=== PATIENT | male | born 1965 | race Caucasian/White ===

== ENCOUNTER 2017-07-19 08:57 | Day surgery (SDC) | payer OTHER ==
[2017-07-18 12:35] VITALS: BMI 25.9
--- NOTE | 2017-07-18 19:45 | PREOPHP ---
DATE OF ADMISSION: 07/19/2017 HISTORY OF PRESENT ILLNESS: This 52-year-old patient is going to be admitted for diagnostic arthroscopy, partial medial and lateral meniscectomy, possible plica band release and synovectomy, application of Diaz dressing. This 52-year-old patient has been experiencing knee pain for quite a while. Conservative treatment resulted in limited benefit to the patient, and the patient has requested surgical intervention. PAST MEDICAL HISTORY: Reflux disease. SOCIAL HISTORY: Nonsmoker, nondrinker. FAMILY HISTORY: Negative. ALLERGIES: NONE. MEDICATIONS: Have been: 1. Diclofenac. 2. Folic acid and D3. 3. For postop, he was given Bactrim-DS and ibuprofen. OTHER MEDICATIONS: The patient has been on, (Cadista) methylprednisolone. REVIEW OF SYSTEMS: Limited to present illness. PHYSICAL EXAMINATION: SKIN: Within normal limits. EENT: PERRLA. HEAD AND NECK: Normocephalic. Trachea midline. Bilateral symmetrical carotid pulses. No mass, no bruit, no lymphadenopathy. CARDIOVASCULAR: Normal sinus rhythm. S1, S2 normal. No murmur. No JVD. No peripheral edema. LUNGS: Clear. ABDOMEN: Slightly protuberant. No organomegaly. No mass. Bowel sounds present. GENITOURINARY AND RECTAL: Not done. Not pertinent to this admission. MUSCULOSKELETAL: Height 5 feet 10, weighing 180 pounds. Cervical spine shows normal range of motion. Spine has minimal tenderness. Shoulders, elbows, wrists and hands were normal, including normal neurological examination. Lumbar spine: This shows range of motion is 75% with tenderness over the L4, L5 and S1 facet joints. Hips show normal range of motion. Right knee shows range of motion from 0 to 120 degrees with tenderness over the medial as well as the lateral tibiofemoral joint line. Positive Joey test. Positive patellofemoral test. Mild synovitis present. IMAGING: MRI has indicated complex tear of the medial meniscus, lateral meniscus, chondral loss, effusion and synovitis. TREATMENT PLAN: Alternatives, risks and benefits discussed. The patient understands the possibility of complications from surgery such as infection, bleeding, nerve damage, vascular damage, possibility of deep venous thrombosis, pulmonary embolism, hypersensitivity and occasionally even . [place] result may not be obtained depending on actual findings and known or unknown factor or factors. Formal H and P is supposed to have been done by PCP. Dictated By: ESME MOLINA/GIDEON Conf#: [id number] DID#: [id number] JACKIE
[2017-07-19] VITALS (18 sets, daily range): BP systolic 135–154; BP diastolic 78–88; PULSE 60–65; RESP 16–18; Ht 177.8 cm; Wt 80.1 kg
[~2017-07-19] VITALS: Ht 177.8 cm; Wt 80.1 kg
[2017-07-19] MEDS ORDERED: FOLI-49 PO (09:55)
[2017-07-19] MEDS ORDERED: DICL50TA11 PO (09:56)
[2017-07-19] MEDS ORDERED: OMEP40CA6 PO (09:56)
[2017-07-19] MEDS ORDERED: CHOL100062 PO (09:57)
[2017-07-19] MEDS ORDERED: CEFAZOLIN 2 GM/50 ML (PMX) 50 ML IVPB ONE (10:00)
[2017-07-19] MEDS ORDERED: morphine SULFATE/PF (10 MG/10 ML) INJ ONE (10:04)
[2017-07-19] MEDS ORDERED: EPINEPHrine 1 MG/ML 30 ML INJ ONE (10:04)
[2017-07-19] MEDS ORDERED: ROCURONIUM 50 MG INJ ONE (10:38)
[2017-07-19] MEDS ORDERED: PROPOFOL 20 ML ONE (10:38)
[2017-07-19] MEDS ORDERED: FENTAnyl 50 MCG/ML VIAL ONE (10:38)
[2017-07-19] MEDS ORDERED: SUCCINYLCHOLINE CHLORIDE 100 MG/5 ML SYG IV ONE (10:38)
[2017-07-19] MEDS ORDERED: ONDANSETRON 4 MG INJ ONE (10:38)
[2017-07-19] MEDS ORDERED: CEFAZOLIN 1 GM INJ ONE (10:39)
[2017-07-19] MEDS ORDERED: ONDANSETRON 4 MG INJ IV PRN (11:30)
[2017-07-19] MEDS ORDERED: FENTAnyl 50 MCG/ML VIAL IV PRN ×2 (11:30)
[2017-07-19] MEDS ORDERED: HYDROmorphONE (0.2 MG/ML) 10ML SYG IV PRN ×2 (11:30)
[2017-07-19] MEDS ORDERED: MEPERIDINE 25 MG INJ IV PRN (11:30)
[2017-07-19] MEDS ORDERED: HYDROCODONE/APAP (5/325) TAB PO PRN ×2 (12:00)
--- NOTE | 2017-07-19 12:02 | SIPON ---
Date/Time of Note Date/Time of Note DATE: 07/19/17 TIME: 11:57 Operative Report Preoperative Diagnosis torn medial and lateral meniscus right knee Postoperative Diagnosis The same Operation/Procedure Performed Diagnostic scope partial medial and lateral menisectomy and lateral meniscal repair and application of Diaz dressing Surgeon Barry Lutz MD assistant men's lacrosse coach None Anesthesia: general Estimated blood loss: minimal Transfusion Required none Specimen None Grafts/Implants none Complications none ESME LUTZ MD Jul 19, 2017 12:03
--- NOTE | 2017-07-19 12:02 | SIPON ---
Date/Time of Note Date/Time of Note DATE: 07/19/17 TIME: 11:57 Operative Report Preoperative Diagnosis torn medial and lateral meniscus right knee Postoperative Diagnosis The same Operation/Procedure Performed Diagnostic scope partial medial and lateral menisectomy and lateral meniscal repair and application of Diaz dressing Surgeon Barry Lutz MD executive administrative assistant None Anesthesia: general Estimated blood loss: minimal Transfusion Required none Specimen None Grafts/Implants none Complications none ESME LUTZ MD Jul 19, 2017 12:03
[2017-07-19] MEDS: HYDROmorphONE (0.2 MG/ML) 10ML SYG IV PRN ×2 (12:26→13:15)
--- NOTE | 2017-07-19 14:22 | OPR ---
DATE OF OPERATION: PREOPERATIVE DIAGNOSES: 1. Torn medial and lateral meniscus, right knee. 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 POSTOPERATIVE DIAGNOSES: 1. Torn medial meniscus. 2. Torn lateral meniscus, right knee. PROCEDURE: Diagnostic arthroscopy, partial medial meniscectomy, partial lateral meniscectomy, later al meniscal repair, application of Diaz dressing. ANESTHESIA: General. BLEEDING: Minimal. COMPLICATIONS: None. DESCRIPTION OF PROCEDURE: Patient was transferred to the operating room and placed on the table in supine position and general anesthesia was induced. A gram of Ancef was given IV. Right knee was s haved, prepped and draped in the routine fashion and landmarks were marked and through regular to an terior portal one medial, one lateral per patellar tendon operative arthroscopy was commenced. Exam ination of suprapatellar pouch indicated normal finding. 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 Going to medial compartment, there was grade II and III chondromalacia and chondral loss and patchy form especially where it articulates to the posterior horn. There was luis ed synovitis anteriorly, which was taken care of by shrinkage. There was a complex tear of the post erior horn combination of flap tear, horizontal cleavage tear and vertical tear. Partial medial men iscectomy to stable margins was done and debris was removed. Periphery of the meniscus was intact. ACL was intact, but was void of vascularity. Going to the lateral compartment, there was a flap te ar in the anterior horn and also at the root. Therefore, partial lateral meniscectomy to stable mar gins was done. Anterior one third of the meniscus was then stable and I could push it almost to 0.5 cm of the posterior section of the lateral meniscus, therefore, lateral meniscal repair was done an d stable meniscus was obtained and bleeding periphery. The knee was evacuated from debris with copi ous amount of saline irrigation. Portal was closed with benzoin and Steri-Strips and the sutures __ ___ meniscus was delivered to small incision inferiorly to the sutures and the small incision which was the same size as pretty much the portal, it was closed with benzoin and Steri-Strips. Ten jazmin gram of Duramorph mixed with 10 mL of injectable saline was injected into the knee. A sterile Diaz dressing was applied. Procedure was terminated. General anesthesia was stopped. Patient was take n to recovery room in good and stable condition. Dictated By: ESME MOLINA/GIDEON Conf#: [id number] DID#: [id number]
== END 2017-07-19 14:40 | disposition home or self-care (01) ==
LOC: SDS 08:57
PROVIDERS: ATTEND Internal Medicine Endocrinology, Diabetes & Metabolism
DX: S83.281A Other tear of lateral meniscus, current injury, right knee, initial encounter (principal); S83.241A Other tear of medial meniscus, current injury, right knee, initial encounter; X58.XXXA Exposure to other specified factors, initial encounter; Y93.89 Activity, other specified; Y92.89 Other specified places as the place of occurrence of the external cause; Y99.8 Other external cause status
CPT/HCPCS: 29880; C1713; J0171; J0690; J1170; J2274; J2405; J3010; Z7512; Z7610